=== PATIENT | male | born 1990 | race Caucasian/White ===

== ENCOUNTER 2017-11-28 14:09 | Emergency (ER) | payer MEDICAID ==
[2017-11-28] MEDS: CEFTRIAXONE 1 GM/50 ML (PMX) 50 ML IVPB (17:14)
[2017-11-28] MEDS: KETOROLAC 30 MG INJ IV (17:14)
[2017-11-28 17:16] LABS: HAAIG REFLEX REFLEX FILED
[2017-11-28 18:16] LABS: HEPATITIS B SURFACE ANTIGEN NEGATIVE (NEGATIVE)
[2017-11-28 18:33] LABS: HEPATITIS B CORE ANTIBODY NEGATIVE (NEGATIVE); HEPATITIS C VIRAL ANTIBODY NEGATIVE (NEGATIVE); HIV 1&2 ANTIBODY NEGATIVE (NEGATIVE)
[2017-11-28] MEDS: HYDROCODONE/APAP (5/325) TAB PO (18:59)
== END 2017-11-28 19:35 | disposition home or self-care (01) ==
LOC: FTE 14:09
DX: L02.411 Cutaneous abscess of right axilla (principal); I82.612 Acute embolism and thrombosis of superficial veins of left upper extremity
CPT/HCPCS: 86703; 86704; 86709; 86803; 87340; 93971; 96374; 96375; 99284-25

== ENCOUNTER 2018-02-08 19:00 | Emergency (ER) | payer OTHER, MEDICAID ==
[2018-02-08] MEDS: HYDROCODONE/APAP (5/325) TAB PO (20:58)
== END 2018-02-08 21:31 | disposition home or self-care (01) ==
LOC: FTE 19:00
DX: M79.631 Pain in right forearm (principal)
CPT/HCPCS: 93971; 99284-25

== ENCOUNTER 2018-02-11 06:00 | Emergency (ER) | payer OTHER ==
[2018-02-11] MEDS: HYDROCODONE/APAP (10/325) TAB PO (06:38)
== END 2018-02-11 07:30 | disposition home or self-care (01) ==
LOC: FTE 06:00
DX: M25.572 Pain in left ankle and joints of left foot (principal); M79.672 Pain in left foot
CPT/HCPCS: 73590; 73610; 73630-LT; 99283-25